=== PATIENT | female | born 1960 | race Caucasian/White ===

== ENCOUNTER → 2024-01-30 08:49 | Outpatient (REF) | payer OTHER, SELFPAY | LOC: RAD 08:49 | PROVIDERS: ATTENDING PHYSICIAN Nurse Practitioner Family | DX: Z13.820 Encounter for screening for osteoporosis (principal) | CPT/HCPCS: 77080 ==

== ENCOUNTER → 2024-07-11 07:56 | Outpatient (REF) | payer OTHER, SELFPAY | LOC: HWRAD 07:56 | PROVIDERS: ATTENDING PHYSICIAN Internal Medicine Cardiovascular Disease; FAMILY PHYSICIAN Nurse Practitioner Family | DX: E78.41 Elevated Lipoprotein(a) (principal); Z82.49 Family history of ischemic heart disease and other diseases of the circulatory system | CPT/HCPCS: 76770 ==